=== PATIENT | male | born 1995 | race Caucasian/White ===

== ENCOUNTER 2016-12-22 15:42 | Emergency (ER) | payer OTHER ==
[2016-12-22 15:52] VITALS: BP 133/76; PULSE 94; TEMP 98; BMI 29.0
[2016-12-22] MEDS ORDERED: IBUPROFEN 600 MG TABLET (FP) PO ONE ×2 (16:41→16:42)
--- NOTE | 2016-12-22 16:49 | PDOC ---
History of Present Illness - General Stated Complaint: RT LEG INJURY Time Seen by Provider: 12/22/16 15:59 History Source: Patient, Parent(s) Exam Limitations: No Limitations - History of Present Illness Initial Comments: 12/22/16 16:42 missed step last PM and inverted right ankle- has swelling / tender Occurred: reports: yesterday Severity: reports: mild, moderate Pain Location: reports: lower extremity (right ankle ) Method of Injury: Yes: unknown, fall Modifying Factors: improves with: cold therapy, immobilization, pain medication Associated Symptoms (Fall): denies symptoms Past History - Travel Traveled outside of the country in the last 30 days: No Close contact w/someone who was outside of country & ill: No - Past Medical History Home Medications: Ambulatory Orders NK [No Known Home Medication] 12/22/16 Thyroid Disease: No - Psycho/Social/Smoking Cessation Hx Anxiety: No Suicidal Ideation: No Smoking History: Never smoked Have you smoked in the past 12 months: No Information on smoking cessation initiated: No Hx Alcohol Use: No Drug/Substance Use Hx: No Substance Use Type: None Review of Systems - Review of Systems Able to Perform ROS?: Yes Is the patient limited Korean proficient: Yes Constitutional: Yes: See HPI. No: Symptoms Reported, Malaise HEENTM: Yes: Symptoms Reported, See HPI Respiratory: Yes: See HPI, Cough Musculoskeletal: Yes: Symptoms Reported All Other Systems: Reviewed and Negative *Physical Exam - Vital Signs Last Vital Signs Temp Pulse Resp BP Pulse Ox 98.0 F 94 H 18 133/76 100 12/22/16 15:42 12/22/16 15:42 12/22/16 15:42 12/22/16 15:42 12/22/16 15:42 - Physical Exam General Appearance: Yes: Nourished, Appropriately Dressed, Apparent Distress HEENT: positive: MOY, TMs Normal, Pharynx Normal Neck: positive: Supple Musculoskeletal: negative: Normal Inspection Extremity: positive: Normal Capillary Refill, Normal Inspection. negative: Normal Range of Motion (swelling and pain to lateral malleolus, fifth metatarsal , navicular tenderness, Achilles is intact, negative squeeze test. Neurovascular intact to toes) Integumentary: positive: Dry, Warm, Pale, Swelling, Ecchymosis, Bruising Neurologic: positive: facing baster II-XII NML intact, Fully Oriented, Alert, Normal Mood/ Affect, Normal Response, Motor Strength 5/5 Procedures - Splinting Pre-Proc Neuro Vasc Exam: normal Pre-Made Type: aircast Post-Proc Neuro Vasc Exam: normal, unchanged from pre-exam Seven Bandage: 4" ED Treatment Course - RADIOLOGY Radiology Studies Ordered: Category Date Time Status ANKLE-RIGHT [RAD] Stat Radiology 12/22/16 16:40 Ordered Progress Note - Progress Note Progress Note: no fracture or dislocation- Seven/ Aircast and crutches provided./ will F/U with Ortho *DC/Admit/Observation/Transfer Diagnosis at time of Disposition: Right ankle sprain Qualifiers: Encounter type: initial encounter Involved ligament of ankle: unspecified ligament Qualified Code(s): S93.401A - Sprain of unspecified ligament of right ankle, initial encounter - Discharge Dispostion Disposition: HOME Condition at time of disposition: Stable Admit: No - Referrals Referrals: Lluvia Heaton MD [Primary Care Provider] - Messi Lyn MD [Staff Physician] - - Patient Instructions Printed Discharge Instructions: DI for Ankle Sprain Additional Instructions: Rest, ice to area on and off for 15 minutes 4-6 times a day Avoid heavy lifting or exercise until pain and swelling is resolved or until further directed Keep area highly elevated to reduce swelling Use splints/Seven wrap as directed Followup with orthopedist in one to 2 days if not improving, if significantly improved may wait one week for followup with orthopedist May use ibuprofen 2-200 mg tablets every 6 hours as needed for pain
== END 2016-12-22 17:12 | disposition home or self-care (01) ==
LOC: JERFT 15:42
PROC: 2W3LX1Z Immobilization of Right Lower Extremity using Splint (ICD-10-PCS; principal; 2016-12-22)
DX: S93.401A Sprain of unspecified ligament of right ankle, initial encounter (principal); W10.8XXA Fall (on) (from) other stairs and steps, initial encounter; Y93.89 Activity, other specified; Y92.89 Other specified places as the place of occurrence of the external cause
CPT/HCPCS: 29515; 73610-TC-RT; 99282-25